=== PATIENT | male | born 1965 | race Caucasian/White ===

== ENCOUNTER 2017-02-08 16:45 | Emergency (ER) | payer OTHER ==
[~2017-02-08] VITALS: Ht 180.3 cm; Wt 104.3 kg
[2017-02-08] MEDS ORDERED: CIAL20TA (16:55)
[2017-02-08] MEDS ORDERED: ATOR1TAB19 (16:55)
[2017-02-08] MEDS ORDERED: CAPT1TAB17 (16:55)
[2017-02-08] MEDS ORDERED: CLINDAMYCIN 150 MG CAP PO ONE (18:45)
[2017-02-08] MEDS ORDERED: IBUPROFEN 800 MG TAB PO ONE (18:45)
[2017-02-08] MEDS ORDERED: CLEO300C2 PO (19:09)
[2017-02-08 19:18] VITALS: BP 171/102
--- NOTE | 2017-02-09 08:33 | REP ---
LEFT HAND: CLINICAL: Pain and swelling involving the fifth digit. FINDINGS: Osseous structures and joint spaces are intact and normal for age. No acute fracture or dislocation. No periosteal reaction. No overt osteoarthritic degenerative changes are appreciated. No subcutaneous emphysema or radiodense foreign body noted. IMPRESSION: Age appropriate left hand radiographs. No obvious acute radiographic abnormalities appreciated. Signed by Nirav Ray MD 02/13/2017 11:05 A
== END 2017-02-08 19:20 | disposition home or self-care (01) ==
LOC: M ED 17:48
DX: L03.114 Cellulitis of left upper limb (principal); M25.542 Pain in joints of left hand; I10 Essential (primary) hypertension; E78.9 Disorder of lipoprotein metabolism, unspecified; F17.210 Nicotine dependence, cigarettes, uncomplicated; Z79.899 Other long term (current) drug therapy

== ENCOUNTER → 2017-10-28 | Outpatient (CLI) | payer OTHER ==
[~2017-10-28] MED LIST: ATOR1TAB19; CAPT1TAB17; CIAL20TA; CLEO300C2 PO
[2017-10-28 07:40] LABS: MEAN CORPUSCULAR HEMOGLOBIN 34.3 pg (27.0-33.0); MEAN CORPUSCULAR HGB CONC 34.2 g/dl (32.0-36.5); MEAN CORPUSCULAR VOLUME 100.4 fl (80.0-96.0); PLATELET COUNT, AUTOMATED 204 10^3/uL (150-450); RED CELL DISTRIBUTION WIDTH 12.3 % (11.5-14.5); WHITE BLOOD COUNT 6.7 10^3/uL (4.0-10.0)
[2017-10-28 08:12] LABS: ALBUMIN 3.7 GM/DL (3.2-5.2); ALBUMIN/GLOBULIN RATIO 1.28 (1.00-1.93); ALKALINE PHOSPHATASE 74 U/L (45-117); ALT/SGPT 37 U/L (12-78); ANION GAP 6 MEQ/L (8-16); AST/SGOT 25 U/L (7-37); BILIRUBIN,TOTAL 0.4 MG/DL (0.2-1.0); BLOOD UREA NITROGEN 16 MG/DL (7-18); CARBON DIOXIDE LEVEL 27 MEQ/L (21-32); CHLORIDE LEVEL 107 MEQ/L (98-107); CHOLESTEROL LEVEL 186 MG/DL (<200); CREATININE FOR GFR 0.97 MG/DL (0.70-1.30); GLOMERULAR FILTRATION RATE > 60.0 (>56); GLUCOSE, FASTING 102 MG/DL (70-105); POTASSIUM SERUM 4.3 MEQ/L (3.5-5.1); SODIUM LEVEL 140 MEQ/L (136-145); TOTAL PROTEIN 6.6 GM/DL (6.4-8.2); TRIGLYCERIDES LEVEL 185 MG/DL (<150)
--- NOTE | 2017-10-28 08:14 | REP ---
Clinical: Hypertension . Comparison: 11/12/2016 . Technique: PA and lateral. Findings: The mediastinum and cardiac silhouette are normal. The lung samayoa are clear and without acute consolidation, effusion, or pneumothorax. The skeletal structures are intact and normal. Impression: 1. No acute cardiopulmonary process. Signed by Nirav Ray MD 10/28/2017 08:05 A
--- NOTE | 2017-10-28 10:20 | ECGEPIP ---
Stationary ECG Study [facility] Test Date: 2017-10-28 Pat Name: ENRIQUE POSEY Department: Room: - Gender: M [employer] Hrms Developer: : 1965 Requested By: Janet Kline Order Number: [id number] Reading MD: Shanon Pickering Measurements Intervals [place] Rate: 61 P: 59 [place]: 163 QRS: 14 QRSD: 96 T: 12 QT: 403 QTc: 406 Interpretive Statements SINUS RHYTHM NORMAL STABLE C/W 11/12/16 Electronically Signed On 10-28-2017 10:20:29 EST by Shanon Pickering
== END ==
LOC: M RAD 06:45
PROVIDERS: ATTEND Family Medicine
DX: I10 Essential (primary) hypertension (principal); N40.0 Benign prostatic hyperplasia without lower urinary tract symptoms

== ENCOUNTER → 2018-09-28 | Outpatient (CLI) | payer OTHER | LOC: M ONCR 12:56 | DX: C44.212 Basal cell carcinoma of skin of right ear and external auricular canal (principal) | CPT/HCPCS: G0463 ==

== ENCOUNTER 2018-10-05 15:05 | Outpatient (RCR) | payer OTHER | END 2018-10-29 | LOC: M ONCR 15:05 | DX: C44.519 Basal cell carcinoma of skin of other part of trunk (principal) | CPT/HCPCS: 77300 ==

== ENCOUNTER 2018-11-11 13:09 | Outpatient (RCR) | payer OTHER ==
--- NOTE | 2018-11-09 12:54 | RADONC ---
RADIATION ONCOLOGY PROGRESS NOTE DATE: 11/08/2018 CHART NUMBER: [id number] Mr. Holland is presently at a dose of 4250 cGy to the skin of his left neck and is tolerating treatments quite well at this point with no complaints related to his radiation therapy. He is having no skin discomfort. REVIEW OF SYSTEMS: The patient's review of systems is noncontributory. He denies nausea, vomiting, fevers, chills, night sweats, diplopia, headaches, anxiety or depression, anorexia, weight loss, visual disturbances, chest pain, urinary or bowel difficulties, bone pain or neurological problems. PHYSICAL EXAMINATION: The patient's skin shows erythema and tanning present, but overall is in good condition with no evidence of moist or dry desquamation. The remainder of his physical exam remains unchanged. Mr. Holland is tolerating treatments quite well and radiation will continue as scheduled.
--- NOTE | 2018-11-12 14:47 | RADONC ---
RADIATION ONCOLOGY TREATMENT SUMMARY DATE: 11/12/2018 CHART NUMBER: [id number] DIAGNOSIS: Basal cell carcinoma of the left neck. ECOG PERFORMANCE STATUS: 0 TREATMENT SUMMARY: We treated the patient to his left neck for a total dose of 5000 cGy delivered in 20 fractions of 250 cGy each over 30 elapsed days from 10/12/2018 to 11/11/2018. The patient's neck was treated on the linear accelerator utilizing a 6 MeV electron beam prescribed to the 90% isodose line via an en face technique. Mr. Holland tolerated his treatments quite well and was able to complete therapy as prescribed without difficulties. I have scheduled the patient to see me again in 1 month for further followup. He will also continue to be followed by his other physicians as well. cc: Raisa Curtis MD
== END 2018-11-29 ==
LOC: M ONCR 13:09
PROVIDERS: ATTEND Radiology Radiation Oncology
DX: C44.519 Basal cell carcinoma of skin of other part of trunk (principal)

== ENCOUNTER → 2018-12-15 | Outpatient (CLI) | payer OTHER ==
--- NOTE | 2018-12-17 08:17 | RADONC ---
RADIATION ONCOLOGY FOLLOWUP NOTE DATE: 12/15/2018 CHART NUMBER: [id number] DIAGNOSIS: Basal cell carcinoma of the left neck. ECOG PERFORMANCE STATUS: 0 FOLLOWUP NOTE: Mr. Holland is a very pleasant, 53-year-old white male with the diagnosis of a basal cell carcinoma of his left neck who is presenting to us today for routine followup visit 1 month post completion of external beam radiation therapy. The patient presents today reporting that he is doing quite well with no complaints at this time related to his radiation therapy or disease. He has no skin pain or discomfort. REVIEW OF SYSTEMS: The patient's review of systems is noncontributory. Denies nausea, vomiting, fevers, chills, night sweats, diplopia, headaches, anxiety or depression, anorexia, weight loss, visual disturbances, chest pain, urinary or bowel difficulties, bone pain, or neurological problems. PHYSICAL EXAMINATION: The patient's skin in excellent condition with no evidence of radiation change present. There is no nodularity ulceration or evidence of residual disease. There is no palpable preauricular, cervical, supraclavicular, infraclavicular or lymphadenopathy present. ASSESSMENT: Mr. Holland is clinically JOSE D at this time and is being discharged from our followup except on a p.r.n. basis. He will continue to be followed by his other physicians in the meantime. cc: Raisa Curtis MD
== END ==
LOC: M ONCR 13:57
PROVIDERS: ATTEND Radiology Radiation Oncology
DX: C44.519 Basal cell carcinoma of skin of other part of trunk (principal)

== ENCOUNTER → 2019-01-28 | Outpatient (CLI) | payer OTHER ==
--- NOTE | 2019-01-28 08:28 | REP ---
Clinical: Pleurisy . Comparison: 10/28/2017 . Technique: PA and lateral. Findings: The mediastinum and cardiac silhouette are normal. The lung samayoa are clear and without acute consolidation, effusion, or pneumothorax. The skeletal structures are intact and normal. Impression: 1. No acute cardiopulmonary process. Electronically Signed by Nirav Ray MD 01/28/2019 08:20 A
== END ==
LOC: M RAD 06:39
PROVIDERS: ATTEND Family Medicine
DX: R09.1 Pleurisy (principal)

== ENCOUNTER → 2019-07-13 | Outpatient (CLI) | payer OTHER ==
[2019-07-13 07:13] LABS: HEMATOCRIT 47.4 % (42.0-52.0); HEMOGLOBIN 16.2 g/dl (13.5-17.5); MEAN CORPUSCULAR HEMOGLOBIN 35.1 pg (27.0-33.0); MEAN CORPUSCULAR HGB CONC 34.2 g/dl (32.0-36.5); MEAN CORPUSCULAR VOLUME 102.8 fl (80.0-96.0); PLATELET COUNT, AUTOMATED 166 10^3/uL (150-450); RED BLOOD COUNT 4.61 10^6/uL (4.30-6.10); WHITE BLOOD COUNT 6.4 10^3/uL (4.0-10.0)
[2019-07-13 07:45] LABS: ALBUMIN 3.7 GM/DL (3.2-5.2); ALT/SGPT 46 U/L (12-78); BILIRUBIN,TOTAL 0.6 MG/DL (0.2-1.0); BLOOD UREA NITROGEN 15 MG/DL (7-18); CALCIUM LEVEL 8.7 MG/DL (8.5-10.1); CARBON DIOXIDE LEVEL 27 MEQ/L (21-32); CHLORIDE LEVEL 105 MEQ/L (98-107); CHOLESTEROL LEVEL 162 MG/DL (<200); CHOLESTEROL RISK RATIO 3.056 (<5); CREATININE FOR GFR 1.02 MG/DL (0.70-1.30); GLOMERULAR FILTRATION RATE > 60.0 (>56); GLUCOSE, FASTING 101 MG/DL (70-100); HDL CHOLESTEROL 53 MG/DL (>40); LDL CHOLESTEROL 81 MG/DL (<100); NON-HDL-C 109 MG/DL; POTASSIUM SERUM 4.1 MEQ/L (3.5-5.1); PROSTATIC SPECIFIC AG MONITOR 1.09 NG/ML (< 4.00); SODIUM LEVEL 141 MEQ/L (136-145); TOTAL PROTEIN 6.3 GM/DL (6.4-8.2); TRIGLYCERIDES LEVEL 139 MG/DL (<150)
[2019-07-13 10:01] LABS: TESTOSTERONE 733 NG/DL (241-827)
--- NOTE | 2019-07-13 11:05 | REP ---
CHEST X-RAY: Two views. HISTORY: Hypertension. Hypothyroid. COMPARISON STUDY: January 28, 2019. FINDINGS: The lungs are symmetrically aerated and clear. Pleural angles are sharp. Heart size is normal. Pulmonary vasculature is not increased. No significant bony abnormalities seen. IMPRESSION: No active disease. Electronically Signed by Victor Hugo Ortega MD 07/13/2019 08:57 P
--- NOTE | 2019-07-16 15:38 | ECGEPIP ---
[facility] Test Date: 2019-07-13 Pat Name: ENRIQUE POSEY Department: Room: - Gender: Male Business Planning Director: ERROL : 1965 Requested By: Janet Kline Order Number: [id number] Reading MD: Howie Nayak Measurements Intervals [place] Rate: 57 P: 58 ME: 156 QRS: 16 QRSD: 95 T: 11 QT: 410 QTc: 400 Interpretive Statements SINUS BRADYCARDIA Last tracing on 10/28/2017 at 7:07 No remarkable changes but slower heart rate Electronically Signed on 07-16-2019 15:38:24 EDT by Howie Nayak
== END ==
LOC: M LAB 06:34
PROVIDERS: ATTEND Family Medicine
DX: I10 Essential (primary) hypertension (principal)

== ENCOUNTER → 2020-07-18 | Outpatient (REF) | payer OTHER | LOC: M LAB REF 16:19 | PROVIDERS: ATTEND Dermatology | DX: D04.60 Carcinoma in situ of skin of unspecified upper limb, including shoulder (principal); L57.0 Actinic keratosis ==

== ENCOUNTER → 2021-05-14 | Outpatient (CLI) | payer OTHER ==
--- NOTE | 2021-05-14 08:14 | REP ---
INDICATION: HTN, HYPOTHYROID, R CAROTID [facility] 1ST EKG 2ND XR 3RD COMPARISON: 07/13/2019 TECHNIQUE: PA and lateral. FINDINGS: The mediastinum and cardiac silhouette are normal. The lung samayoa are clear and without acute consolidation, effusion, or pneumothorax. The skeletal structures are intact and normal. IMPRESSION: No acute cardiopulmonary process. <Electronically signed by Nirav Ray > 05/14/21 [id number]
[2021-05-14 08:17] LABS: HEMATOCRIT 50.3 % (42.0-52.0); HEMOGLOBIN 17.1 g/dl (13.5-17.5); MEAN CORPUSCULAR HEMOGLOBIN 35.5 pg (27.0-33.0); MEAN CORPUSCULAR VOLUME 104.4 fl (80.0-96.0); PLATELET COUNT, AUTOMATED 197 10^3/uL (150-450); RED BLOOD COUNT 4.82 10^6/uL (4.30-6.10); WHITE BLOOD COUNT 7.3 10^3/uL (4.0-10.0)
[2021-05-14 08:37] LABS: HEMOGLOBIN A1c 5.6 %
[2021-05-14 08:44] LABS: ALT/SGPT 43 U/L (12-78); BILIRUBIN,TOTAL 0.7 MG/DL (0.2-1.0); BLOOD UREA NITROGEN 17 MG/DL (7-18); CALCIUM LEVEL 9.1 MG/DL (8.5-10.1); CARBON DIOXIDE LEVEL 28 MEQ/L (21-32); CHLORIDE LEVEL 104 MEQ/L (98-107); CREATININE FOR GFR 0.97 MG/DL (0.70-1.30); GLOMERULAR FILTRATION RATE > 60.0 (>56); GLUCOSE, FASTING 99 MG/DL (70-100); POTASSIUM SERUM 4.4 MEQ/L (3.5-5.1); SODIUM LEVEL 137 MEQ/L (136-145)
[2021-05-14 08:45] LABS: ALBUMIN 3.6 GM/DL (3.2-5.2); CHOLESTEROL LEVEL 175 MG/DL (<200); HDL CHOLESTEROL 57 MG/DL (>40); LDL CHOLESTEROL 92 MG/DL (<100); NON-HDL-C 118 MG/DL; PROSTATIC SPECIFIC AG MONITOR 1.36 NG/ML (< 4.00); TOTAL PROTEIN 6.6 GM/DL (6.4-8.2); TRIGLYCERIDES LEVEL 130 MG/DL (<150)
[2021-05-14 09:38] LABS: TOTAL 25(OH) VITAMIN D 13.9 NG/ML (30.0-100.0)
[2021-05-14 09:39] LABS: TESTOSTERONE 866 NG/DL (241-827)
--- NOTE | 2021-05-14 10:01 | ECGEPIP ---
[facility] Test Date: 2021-05-14 Pat Name: ENRIQUE POSEY Department: Room: - Gender: Male Metallurgical Inspector: maddison : 1965 Requested By: Janet Kline Order Number: [id number] Reading MD: Shanon Pickering Measurements Intervals [place] Rate: 50 P: 50 NH: 160 QRS: 12 QRSD: 80 T: 8 QT: 462 QTc: 421 Interpretive Statements Sinus bradycardia SIMILAR TO 07/13/19 Electronically Signed on 05-14-2021 10:01:23 EDT by Shanon Pickering
== END ==
LOC: M LAB 07:29
PROVIDERS: ATTEND Family Medicine
DX: I10 Essential (primary) hypertension (principal); E03.9 Hypothyroidism, unspecified; R09.89 Other specified symptoms and signs involving the circulatory and respiratory systems; R00.1 Bradycardia, unspecified

== ENCOUNTER → 2022-06-09 | Outpatient (CLI) | payer OTHER ==
[2022-06-09 06:48] LABS: HEMATOCRIT 49.3 % (42.0-52.0); MEAN CORPUSCULAR HEMOGLOBIN 36.6 pg (27.0-33.0); MEAN CORPUSCULAR HGB CONC 34.5 g/dl (32.0-36.5); PLATELET COUNT, AUTOMATED 158 10^3/uL (150-450); RED BLOOD COUNT 4.65 10^6/uL (4.30-6.10); WHITE BLOOD COUNT 6.3 10^3/uL (4.0-10.0)
[2022-06-09 07:02] LABS: HEMOGLOBIN A1c 5.7 %
[2022-06-09 07:26] LABS: ALBUMIN 3.5 GM/DL (3.2-5.2); ALT/SGPT 53 U/L (12-78); BILIRUBIN,TOTAL 0.9 MG/DL (0.2-1.0); BLOOD UREA NITROGEN 17 MG/DL (7-18); CALCIUM LEVEL 9.1 MG/DL (8.5-10.1); CARBON DIOXIDE LEVEL 30 MEQ/L (21-32); CHLORIDE LEVEL 105 MEQ/L (98-107); CHOLESTEROL LEVEL 183 MG/DL (<200); CHOLESTEROL RISK RATIO 2.731 (<5); GLOMERULAR FILTRATION RATE > 60.0 (>56); GLUCOSE, FASTING 108 MG/DL (70-100); HDL CHOLESTEROL 67 MG/DL (>40); LDL CHOLESTEROL 97 MG/DL (<100); NON-HDL-C 116 MG/DL; POTASSIUM SERUM 4.1 MEQ/L (3.5-5.1); SODIUM LEVEL 139 MEQ/L (136-145); TOTAL PROTEIN 6.2 GM/DL (6.4-8.2); TRIGLYCERIDES LEVEL 93 MG/DL (<150)
[2022-06-09 12:58] LABS: TESTOSTERONE 597 NG/DL (241-827); TOTAL 25(OH) VITAMIN D 67.1 NG/ML (30.0-100.0)
== END ==
LOC: M LAB 06:17
PROVIDERS: ATTEND Family Medicine
DX: I10 Essential (primary) hypertension (principal); R53.83 Other fatigue; E03.9 Hypothyroidism, unspecified
CPT/HCPCS: 36415; 80053; 80061; 82306; 83036; 84403; 84443; 85027; G0103

== ENCOUNTER → 2022-06-17 | Outpatient (CLI) | payer OTHER | LOC: M RAD 07:00 | PROVIDERS: ATTEND Family Medicine | DX: I10 Essential (primary) hypertension (principal) ==

== ENCOUNTER → 2023-05-13 | Outpatient (CLI) | payer OTHER ==
[2023-05-13 07:22] LABS: HEMATOCRIT 48.4 % (42.0-52.0); HEMOGLOBIN 16.7 g/dl (13.5-17.5); MEAN CORPUSCULAR HGB CONC 34.5 g/dl (32.0-36.5); MEAN CORPUSCULAR VOLUME 104.3 fl (80.0-96.0); PLATELET COUNT, AUTOMATED 188 10^3/uL (150-450); RED BLOOD COUNT 4.64 10^6/uL (4.30-6.10); WHITE BLOOD COUNT 6.9 10^3/uL (4.0-10.0)
[2023-05-13 07:32] LABS: HEMOGLOBIN A1c 5.5 % (4.0-6.0)
[2023-05-13 07:52] LABS: ALBUMIN 3.7 G/DL (3.2-5.2); ALKALINE PHOSPHATASE 75 U/L (46-116); ALT/SGPT 40 U/L (7.0-40); AST/SGOT 27 U/L (<34); BILIRUBIN,TOTAL 0.5 MG/DL (0.3-1.2); BLOOD UREA NITROGEN 14 MG/DL (9-23); CALCIUM LEVEL 8.9 MG/DL (8.5-10.1); CARBON DIOXIDE LEVEL 30 MMOL/L (20-31); CHLORIDE LEVEL 105 MMOL/L (98-107); CHOLESTEROL LEVEL 156 MG/DL (<200); CHOLESTEROL RISK RATIO 3.17 (<5); GLOMERULAR FILTRATION RATE > 60.0 (>56); GLUCOSE, FASTING 98 MG/DL (60-100); HDL CHOLESTEROL 49.2 MG/DL (>40); LDL CHOLESTEROL 62.8 MG/DL (<100); NON-HDL-C 106.8 MG/DL; POTASSIUM SERUM 4.2 MMOL/L (3.5-5.1); SODIUM LEVEL 139 MMOL/L (136-145); TOTAL PROTEIN 6.2 G/DL (5.7-8.2); TRIGLYCERIDES LEVEL 220 MG/DL (<150)
[2023-05-13 07:55] LABS: TESTOSTERONE 705 NG/DL (241-827); THYROID STIMULATING HORMONE 1.711 uIU/ML (0.55-4.78)
== END ==
LOC: M LAB 06:15
PROVIDERS: ATTEND Family Medicine
DX: I10 Essential (primary) hypertension (principal); R53.83 Other fatigue; E03.9 Hypothyroidism, unspecified

== ENCOUNTER → 2023-05-19 | Outpatient (CLI) | payer OTHER | LOC: M WHC 09:34 | PROVIDERS: ATTEND Family Medicine | DX: N63.42 Unspecified lump in left breast, subareolar (principal); N62 Hypertrophy of breast | CPT/HCPCS: 77066; G0279 ==

== ENCOUNTER → 2024-06-09 | Outpatient (CLI) | payer OTHER ==
[2024-06-09 07:43] LABS: HEMATOCRIT 49.4 % (42.0-52.0); HEMOGLOBIN 16.7 g/dl (13.5-17.5); MEAN CORPUSCULAR HEMOGLOBIN 35.6 pg (27.0-33.0); MEAN CORPUSCULAR HGB CONC 33.8 g/dl (32.0-36.5); MEAN CORPUSCULAR VOLUME 105.3 fl (80.0-96.0); PLATELET COUNT, AUTOMATED 140 10^3/uL (150-450); RED BLOOD COUNT 4.69 10^6/uL (4.30-6.10); WHITE BLOOD COUNT 6.6 10^3/uL (4.0-10.0)
[2024-06-09 07:55] LABS: HEMOGLOBIN A1c 5.5 % (4.0-6.0)
[2024-06-09 08:14] LABS: PROSTATIC SPECIFIC AG MONITOR 0.91 NG/ML (< 4.00)
[2024-06-09 08:17] LABS: ALBUMIN 3.7 G/DL (3.2-5.2); ALKALINE PHOSPHATASE 72 U/L (46-116); ALT/SGPT 46 U/L (7.0-40); AST/SGOT 23 U/L (<34); BILIRUBIN,TOTAL 0.6 MG/DL (0.3-1.2); BLOOD UREA NITROGEN 17 MG/DL (9-23); CALCIUM LEVEL 9.4 MG/DL (8.3-10.6); CARBON DIOXIDE LEVEL 29 MMOL/L (20-31); CHLORIDE LEVEL 107 MMOL/L (98-107); CHOLESTEROL LEVEL 176 MG/DL (<200); CHOLESTEROL RISK RATIO 3.28 (<5); CREATININE FOR GFR 0.96 MG/DL (0.70-1.30); GLOMERULAR FILTRATION RATE > 60.0 (>49); GLUCOSE, FASTING 99 MG/DL (74-106); HDL CHOLESTEROL 53.6 MG/DL (>40); LDL CHOLESTEROL 94.2 MG/DL (<100); NON-HDL-C 122.4 MG/DL; POTASSIUM SERUM 4.3 MMOL/L (3.5-5.1); SODIUM LEVEL 141 MMOL/L (136-145); TOTAL PROTEIN 6.3 G/DL (5.7-8.2); TRIGLYCERIDES LEVEL 141 MG/DL (<150)
[2024-06-09 08:19] LABS: TESTOSTERONE 608 NG/DL (241-827); THYROID STIMULATING HORMONE 2.509 uIU/ML (0.55-4.78)
== END ==
LOC: M RAD 06:27
PROVIDERS: ATTEND Family Medicine
DX: I10 Essential (primary) hypertension (principal); R53.83 Other fatigue; E03.9 Hypothyroidism, unspecified

== ENCOUNTER → 2025-03-20 | Outpatient (REF) | payer OTHER | LOC: M SFHCDERM 17:36 | PROVIDERS: ATTEND Physician Assistant | DX: D04.62 Carcinoma in situ of skin of left upper limb, including shoulder (principal) ==

== ENCOUNTER → 2025-04-19 | Outpatient (CLI) | payer OTHER | LOC: M RAD 14:10 | PROVIDERS: ATTEND Family Medicine | DX: I82.431 Acute embolism and thrombosis of right popliteal vein (principal) ==